=== PATIENT | female | born 1975 | race Caucasian/White ===

== ENCOUNTER 2024-09-17 09:51 | Outpatient (CLI) | payer OTHER, SELFPAY ==
--- NOTE | ~2024-09-17 | MR_ITS ---
EXAMINATION: MR brain/brain stem wo con DATE: 09/17/2024 10:38 INDICATION: Memory loss of unknown cause TECHNIQUE: Magnetic resonance imaging (MRI) of the brain and brainstem was performed without intraven ous contrast. Sequences included sagittal and axial T1-weighted SE, axial diffusion-weighted FS SE, a xial T2*-weighted GRE, axial T2-weighted FLAIR, and axial T2-weighted FSE. Apparent diffusion coeffic ient (ADC) maps were created. COMPARISON: None. FINDINGS: There are no areas of restricted diffusion to suggest acute infarction. No intracranial hemorrhage or abnormal intracranial mass lesion. Minimal scattered nonspecific increased T2-weighted signal intens ity in the cerebral white matter, predominantly involving the deep and periventricular white matter w hich is within normal limits for age. There are no intraparenchymal signal abnormalities seen on the other pulse sequences. The ventricles are symmetric and normal in size. There are no abnormal extra-a xial fluid collections. Flow voids are seen in the cerebral arteries on the T2-weighted sequences con sistent with their expected patency. Mild mucosal thickening along the bilateral ethmoid sinuses. Vis ualized orbits and soft tissues are unremarkable. IMPRESSION: 1. No acute intracranial process. 2. Minimal scattered nonspecific white matter T2 hyperintensity which is within normal limits for age and likely sequela of chronic small vessel ischemic disease. Reviewed, dictated and finalized at location A. IMPRESSION: 1. No acute intracranial process. 2. Minimal scattered nonspecific white matter T2 hyperintensity which is within normal limits for age and likely sequela of chronic small vessel ischemic dise ase.
== END 2024-09-17 09:52 | disposition home or self-care (01) ==
LOC: MICIMG 09:52
DX: R41.3 Other amnesia (principal); R90.82 White matter disease, unspecified
CPT/HCPCS: 70551